=== PATIENT | female | born 2000 | race Caucasian/White ===

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

== ENCOUNTER 2018-04-25 08:40 | Emergency (ER) | payer BC ==
[2018-04-25] MEDS ORDERED: NACL 0.9% 1000 ML 1,000 ML IV ONE ×2 (11:02→12:47)
[2018-04-25] MEDS ORDERED: ZOFRAN IV ONE (11:02)
--- NOTE | 2018-04-25 11:05 | Emergency Department Report ---
Blank Doc - Documentation Documentation: 17-year-old female presents to the hospital complaining of bloody diarrhea for greater than 20 days. Patient was seen by a clinic 15 days ago put on meds including Flagyl without improvement. She was seen by another clinic on the and started on Flagyl again, Lomtil, and omeprazole. Patient developed nausea and vomiting after starting this medication. Patient was also provided containers so that she may provide a stool sample but she has artemio placed a sample and the containers. She denies recent travel, sick contacts, or fever. She presents with a heart rate of 121. Labs ordered CT abdomen and pelvis IV contrast ordered Medications ordered Patient to be transferred to the main side for evaluation
[2018-04-25 11:55] LABS: Alanine Aminotransferase 18 units/L (7-56); Albumin 3.3 g/dL (3.9-5); BUN/Creatinine Ratio 13; Blood Urea Nitrogen 8 mg/dL (7-17); Calcium 8.1 mg/dL (8.4-10.2); Hemolysis Index 0; Lipase 39 units/L (13-60)
[2018-04-25 12:02] LABS: Basophils % (Auto) 0.4 % (0.0-1.8); Eosinophils % (Auto) 0.7 % (0.0-4.3); Hematocrit 27.8 % (30.3-42.9); Hemoglobin 8.6 gm/dl (10.1-14.3); Lymphocytes # (Auto) 1.4 K/mm3 (1.2-5.4); Lymphocytes % (Auto) 21.3 % (13.4-35.0); Mean Corpuscular HGB Conc 31 % (30-34); Mean Corpuscular Volume 73 fl (79-97); Monocytes # (Auto) 0.6 K/mm3 (0.0-0.8); Monocytes % (Auto) 8.7 % (0.0-7.3); Platelet Count 392 K/mm3 (140-440); Red Blood Count 3.82 M/mm3 (3.65-5.03); Red Cell Distribution Width 16.5 % (13.2-15.2)
[2018-04-25 12:18] LABS: Mean Corpuscular Hemoglobin 23 pg (28-32)
[2018-04-25] MEDS ORDERED: TORADOL IV ONE (12:47)
[2018-04-25] MEDS ORDERED: LEVAQUIN PO ONE (12:48)
[2018-04-25 13:00] LABS: Bilirubin,Urine NEG (Negative); Blood,Urine NEG (Negative); Color,Urine Amber (Yellow); Mucus,Urine 2+ /HPF
--- NOTE | 2018-04-25 15:26 | Cat Scan Report ---
FINAL REPORT EXAM: CT ABDOMEN PELVIS W CON HISTORY: bloody diarhea TECHNIQUE: CT abdomen and pelvis performed. Images extend from diaphragm to pubic symphysis. 100 cc Isovue 300 IV was administered. No oral contrast was administered. Axial images and coronal and sagittal reformatted images were obtained. PRIORS: None. FINDINGS: The visualized liver, spleen, pancreas, adrenal glands and kidneys demonstrate no significant abnormalities. There is mild wall thickening involving the sigmoid and rectosigmoid colon. There are air-fluid levels throughout the colon. Findings are worrisome for colitis. There is no evidence of intestinal obstruction. There is no abdominal aortic aneurysm. The appendix is normal. There are no abnormal fluid collections seen. There is no free intraperitoneal air. The bladder is unremarkable. IMPRESSION: Mild distal colonic wall thickening with air-fluid levels throughout the colon. Findings are worrisome for colitis.
--- NOTE | 2018-04-25 16:17 | Emergency Department Report ---
ED General Adult HPI - General Chief complaint: Nausea/Vomiting/Diarrhea Stated complaint: VOMIT, DIARRHEA, STOMACH PAIN Time Seen by Provider: 04/25/18 10:54 Source: patient Mode of arrival: Ambulatory Limitations: No Limitations - History of Present Illness Initial comments: 1 month of bloody diarrhea with 2 days of vomiting after taking lomotil. Pt has been to an urgent care twice for this issue. Given flagyl and lomotil each time. It isn't helping her symptoms. So, she came to the ER for eval. 5-10 BMs per day. No recent travel or abx. Eating causes a BM. Severity scale (0 -10): 5 - Related Data Home Medications Medication Instructions Recorded Confirmed Last Taken Diphenoxylate HCl/Atropine 1 each PO 04/25/18 Unknown [Lomotil 2.5-0.025 mg Tablet] Omeprazole 20 mg PO 04/25/18 Unknown metroNIDAZOLE [Metronidazole] 500 mg PO 04/25/18 Unknown Previous Rx's Medication Instructions Recorded Last Taken Type Ciprofloxacin HCl [Cipro] 500 mg PO BID #14 tablet 04/25/18 Unknown Rx Ondansetron [Zofran TAB] 4 mg PO Q8HR PRN #10 tablet 04/25/18 Unknown Rx Allergies Allergy/AdvReac Type Severity Reaction Status Date / Time No Known Allergies Allergy Unverified 06/24/17 08:58 ED Review of Systems ROS: Stated complaint: VOMIT, DIARRHEA, STOMACH PAIN Other details as noted in HPI Constitutional: denies: chills, fever Eyes: denies: eye pain, eye discharge, vision change ENT: denies: ear pain, throat pain Respiratory: denies: cough, shortness of breath, wheezing Cardiovascular: denies: chest pain, palpitations Endocrine: no symptoms reported Gastrointestinal: abdominal pain, nausea, vomiting, diarrhea, hematochezia Genitourinary: denies: urgency, dysuria, discharge Musculoskeletal: denies: back pain, joint swelling, arthralgia Skin: denies: rash, lesions Neurological: denies: headache, weakness, paresthesias Psychiatric: denies: anxiety, depression Hematological/Lymphatic: denies: easy bleeding, easy bruising ED Past Medical Hx - Past Medical History Previous Medical History?: No - Surgical History Additional Surgical History: back - Social History Smoking Status: Never Smoker Substance Use Type: None - Medications Home Medications: Home Medications Medication Instructions Recorded Confirmed Last Taken Type Ciprofloxacin HCl [Cipro] 500 mg PO BID #14 tablet 04/25/18 Unknown Rx Diphenoxylate HCl/Atropine 1 each PO 04/25/18 Unknown History [Lomotil 2.5-0.025 mg Tablet] Omeprazole 20 mg PO 04/25/18 Unknown History Ondansetron [Zofran TAB] 4 mg PO Q8HR PRN #10 tablet 04/25/18 Unknown Rx metroNIDAZOLE [Metronidazole] 500 mg PO 04/25/18 Unknown History ED Physical Exam - General Limitations: No Limitations General appearance: alert, in no apparent distress - Head Head exam: Present: atraumatic, normocephalic - Eye Eye exam: Present: normal appearance - ENT ENT exam: Present: mucous membranes moist - Neck Neck exam: Present: normal inspection - Respiratory Respiratory exam: Present: normal lung sounds bilaterally. Absent: respiratory distress - Cardiovascular Cardiovascular Exam: Present: regular rate, normal rhythm. Absent: systolic murmur, diastolic murmur, rubs, gallop - GI/Abdominal GI/Abdominal exam: Present: soft, tenderness (mild generalized), normal bowel sounds. Absent: guarding, rebound - Extremities Exam Extremities exam: Present: normal inspection - Back Exam Back exam: Present: normal inspection - Neurological Exam Neurological exam: Present: alert, oriented X3 - Psychiatric Psychiatric exam: Present: normal affect, normal mood - Skin Skin exam: Present: warm, dry, intact, normal color. Absent: rash ED Course Vital Signs 04/25/18 04/25/18 04/25/18 08:53 13:07 16:56 Temperature 98.9 F Pulse Rate 121 H 98 H Respiratory 18 18 Rate Blood Pressure 108/65 Blood Pressure 110/72 [Right] O2 Sat by Pulse 100 Oximetry 04/25/18 18:24 Temperature Pulse Rate Respiratory 18 Rate Blood Pressure Blood Pressure [Right] O2 Sat by Pulse 100 Oximetry ED Medical Decision Making - Lab Data Result diagrams: 04/25/18 11:28 04/25/18 11:28 - Medical Decision Making 17 yo female with no sig pmx that p/w bloody diarrhea x1 month. Vitals significant for HR 120. This improved with IVF. Lab work shows hgb 8.7 with MCV in the 70s. Likely it is due to iron def anemia. Pt denies h/o heavy menstrual periods or anemia. No prior hgb for comparison. Minimal hematochezia on exam. CRp 2.6 with an esr in the 30s. No fam hx of IBD. Spoke with GI (Dr. Salmeron), who agreed with empiric abx, repeat hgb in 2-3 days, and a possible colonoscopy in the future to rule out IBD. Pt doesn't have a PCP and is well appearing. Will start her on cipro/flagyl. Given zofran to go home with. She will return in 3 days for repeat cbc and to find out the results of her stools studies. The patient and her parents are comfortable with this plan. I spoke with them using the cashier clerk. Pt has been provided reading handouts in japanese on anemia, infectious colitis, and taking a daily probiotic. - Differential Diagnosis infectious vs inflammatory colitis, c.diff, ischemic colitis, malignancy, Critical care attestation.: If time is entered above; I have spent that time in minutes in the direct care of this critically ill patient, excluding procedure time. ED Disposition Clinical Impression: Infectious colitis, Anemia Disposition: - TO HOME OR SELFCARE Is pt being admited?: No Does the pt Need Aspirin: No Condition: Stable Instructions: Anemia (ED), Infectious Colitis (ED) Additional Instructions: Your hemoglobin today is 8.7. Please return on 04/28/18, , to get your blood level rechecked and to get the results of your stool studies. Make sure that you drink plenty of gatorade, powerade, and/or water that has electrolytes in it in the meantime. Only eat soups, broths, jello, saltine crackers in the meantime. Continue taking the flagyl with the new medication. Try taking over- the-counter imodium instead of the lomotil to better control your diarrhea. Prescriptions: Ciprofloxacin HCl [Cipro] 500 mg PO BID #14 tablet Ondansetron [Zofran TAB] 4 mg PO Q8HR PRN #10 tablet PRN Reason: Nausea Referrals: PRIMARY CARE,MD [Primary Care Provider] - 3-5 Days
[2018-04-25 20:30] VITALS: BP 100/56
== END 2018-04-25 20:30 | disposition home or self-care (01) ==
LOC: ED 08:40
DX: A09 Infectious gastroenteritis and colitis, unspecified (principal); D64.9 Anemia, unspecified
CPT/HCPCS: 36415; 74177; 80053; 81001; 82270; 83690; 84703; 85007; 85025; 85652; 86140; 87045; 87086; 87324; J1885; J2405; J7030; Q9967; 96361; 96374; 96375

== ENCOUNTER 2018-04-28 16:27 | Emergency (ER) | payer BC ==
[2018-04-28 16:55] LABS: Basophils % (Auto) 0.3 % (0.0-1.8); Eosinophils # (Auto) 0.3 K/mm3 (0.0-0.4); Eosinophils % (Auto) 4.3 % (0.0-4.3); Hematocrit 30.1 % (30.3-42.9); Hemoglobin 9.2 gm/dl (10.1-14.3); Lymphocytes # (Auto) 1.8 K/mm3 (1.2-5.4); Lymphocytes % (Auto) 25.1 % (13.4-35.0); Mean Corpuscular HGB Conc 31 % (30-34); Mean Corpuscular Volume 72 fl (79-97); Monocytes # (Auto) 0.6 K/mm3 (0.0-0.8); Monocytes % (Auto) 9.1 % (0.0-7.3); Platelet Count 398 K/mm3 (140-440); Red Blood Count 4.19 M/mm3 (3.65-5.03)
[2018-04-28 16:56] LABS: Mean Corpuscular Hemoglobin 22 pg (28-32)
[2018-04-28 17:30] LABS: Alanine Aminotransferase 19 units/L (7-56); Albumin 3.5 g/dL (3.9-5); BUN/Creatinine Ratio 5; Blood Urea Nitrogen 3 mg/dL (7-17); Calcium 8.5 mg/dL (8.4-10.2); Hemolysis Index 0
[2018-04-28 18:16] LABS: Bilirubin,Urine NEG (Negative); Blood,Urine LG (Negative); Color,Urine Amber (Yellow); Mucus,Urine 2+ /HPF; RBC,Urine > 182.0 /HPF (0.0-6.0)
--- NOTE | 2018-04-28 20:50 | Emergency Department Report ---
HPI - General Chief Complaint: Abdominal Pain Time Seen by Provider: 04/28/18 20:35 - HPI HPI: Room 5 The patient is a 17-year-old female presenting with a chief complaint of diarrhea. The patient states she's had diarrhea with blood in stool for approximately one month. This is accompanied by intermittent diffuse abdominal pain. Patient has been to multiple clinics for these symptoms in the past and came to this ED 04/25/2018. Stool studies and labs performed in addition to a CT scan of the abdomen and pelvis which revealed mild distal colonic wall thickening without air-fluid levels throughout the colon. Findings were worrisome for colitis. The patient was instructed to return to the ED today for a repeat H&H check and stool study results. The patient states her abdominal pain is intermittent but is not currently present. Patient denies fever, unexplained weight loss. When asked how she is feeling the patient apply she feels "okay." The patient states she is still having diarrhea but not as frequently as before her last ED visit. The patient states before she came to the ED 04/25/2018 she was having over 5 episodes of diarrhea daily now it has decreased approximately 3 and she is noticing streaks of blood in her stool Location: Gastric intestinal system Duration: One month Quality: Cramping Severity: Currently 0/10 Modifying factors: [see above] Context: [see above] Mode of transportation: [not driving] ED Past Medical Hx - Past Medical History Previous Medical History?: No - Surgical History Past Surgical History?: Yes Additional Surgical History: back - Family History Family history: no significant - Social History Smoking Status: Never Smoker Substance Use Type: None - Medications Home Medications: Home Medications Medication Instructions Recorded Confirmed Last Taken Type Ciprofloxacin HCl [Cipro] 500 mg PO BID #14 tablet 04/25/18 Unknown Rx Diphenoxylate HCl/Atropine 1 each PO 04/25/18 Unknown History [Lomotil 2.5-0.025 mg Tablet] Omeprazole 20 mg PO 04/25/18 Unknown History Ondansetron [Zofran TAB] 4 mg PO Q8HR PRN #10 tablet 04/25/18 Unknown Rx metroNIDAZOLE [Metronidazole] 500 mg PO 04/25/18 Unknown History Dicyclomine [Bentyl] 20 mg PO QID #20 tablet 04/28/18 Unknown Rx ED Review of Systems ROS: Stated complaint: PAIN/CHECK UP/WEAK DEHYDRATED Other details as noted in HPI Constitutional: denies: fever Eyes: denies: eye pain ENT: denies: throat pain Respiratory: denies: no symptoms reported Cardiovascular: denies: chest pain Endocrine: denies: unexplained weight gain Gastrointestinal: abdominal pain, nausea, vomiting, diarrhea, hematochezia Genitourinary: denies: dysuria Musculoskeletal: denies: back pain Skin: denies: change in color Neurological: denies: headache Physical Exam - Physical Exam Vital Signs: Vital Signs 04/28/18 04/28/18 04/28/18 16:31 20:00 20:05 Temperature 98.6 F 97.8 F Pulse Rate 91 H 83 Respiratory 18 16 16 Rate Blood Pressure 98/63 Blood Pressure 110/54 [Left] O2 Sat by Pulse 100 98 Oximetry Physical Exam: GENERAL: The patient is well-developed well-nourished female lying on stretcher not appearing to be in acute distress. [] HEENT: Normocephalic. Atraumatic. Extraocular motions are intact. Patient has moist mucous membranes. NECK: Supple. Trachea midline CHEST/LUNGS: Clear to auscultation. There is no respiratory distress noted. HEART/CARDIOVASCULAR: Regular. There is no tachycardia. There is no gallop rub or murmur. ABDOMEN: Abdomen is soft, with discomfort to palpation in the left upper quadrant, left lower quadrant and midepigastric region. Patient has normal bowel sounds. There is no abdominal distention. SKIN: There is no rash. There is no edema. There is no diaphoresis. NEURO: The patient is awake, alert, and oriented. The patient is cooperative. The patient has normal speech MUSCULOSKELETAL: There is no evidence of acute injury. ED Course Vital Signs 04/28/1818 04/28/18 16:31 20:00 20:05 Temperature 98.6 F 97.8 F Pulse Rate 91 H 83 Respiratory 18 16 16 Rate Blood Pressure 98/63 Blood Pressure 110/54 [Left] O2 Sat by Pulse 100 98 Oximetry - Consultations Consultation #1: 04/28/18 20:55 GI paged 04/28/18 21:[address] Curtis. States patient should continue antibiotics and follow-up in office ED Medical Decision Making - Lab Data Result diagrams: 04/28/18 16:42 07/19/18 16:42 Laboratory Tests 04/28/18 04/28/18 04/28/18 16:42 16:42 17:57 WBC 7.1 RBC 4.19 Hgb 9.2 L Hct 30.1 L MCV 72 L MCH 22 L MCHC 31 RDW 17.0 H Plt Count 398 Lymph % (Auto) 25.1 [place] % (Auto) 9.1 H Eos % (Auto) 4.3 Baso % (Auto) 0.3 Lymph # 1.8 [place] # 0.6 Eos # 0.3 Baso # 0.0 Seg Neutrophils % 61.2 Seg Neutrophils # 4.3 Sodium 136 L Potassium 4.0 Chloride 102.4 Carbon Dioxide 25 Anion Gap 13 BUN 3 L Creatinine 0.6 L Estimated GFR > 60 BUN/Creatinine Ratio 5 Glucose 112 H Calcium 8.5 Total Bilirubin 0.20 AST 34 ALT 19 Alkaline Phosphatase 62 Total Protein 7.2 Albumin 3.5 L Albumin/Globulin Ratio 0.9 Urine Color [place] Urine Turbidity Clear Urine pH 5.0 Ur Specific [place] 1.024 Urine Protein 100 mg/dl Urine Glucose (UA) Neg Urine Ketones Tr Urine Blood Lg Urine Nitrite Neg Urine Bilirubin Neg Urine Urobilinogen 2.0 Ur Leukocyte Esterase Mod Urine WBC (Auto) 26.0 H Urine RBC (Auto) > 182.0 U Epithel Cells (Auto) 3.0 Urine Mucus 2+ - Differential Diagnosis Crohn's disease, ulcerative colitis, irritable bowel syndrome Critical care attestation.: If time is entered above; I have spent that time in minutes in the direct care of this critically ill patient, excluding procedure time. ED Disposition Clinical Impression: Infectious colitis, Hematochezia Disposition: TO HOME OR SELFCARE Is pt being admited?: No Does the pt Need Aspirin: No Condition: Stable Instructions: Abdominal Pain (ED) Additional Instructions: Return to the emergency department immediately should you develop worsening symptoms, fever, inability to tolerate food or liquid or any other concerns. 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 Please follow up with him for further evaluation) Time of Disposition: 21:42
[2018-04-28 22:14] VITALS: BP 102/52
== END 2018-04-28 22:14 | disposition home or self-care (01) ==
LOC: ED 16:27
DX: A09 Infectious gastroenteritis and colitis, unspecified (principal); K92.1 Melena
CPT/HCPCS: 36415; 80053; 81001; 85025; 99283

== ENCOUNTER 2022-01-23 08:19 | Day surgery (SDC) | payer BC ==
[~2022-01-23 08:19] MED LIST: SODIUM CHLORIDE 0.9% 1000 ML 1,000 ML IV SCH
--- NOTE | 2022-01-23 09:19 | Anesthesia Consultation ---
Anesthesia Consult and Med Hx Date of service: 01/23/22 - Airway Anesthetic Teeth Evaluation: Good ROM Head & Neck: Adequate Mental/Hyoid Distance: Adequate Mallampati Class: Class II Intubation Access Assessment: Good - Pre-Operative Health Status ASA Pre-Surgery Classification: ASA1 Proposed Anesthetic Plan: MAC - Pulmonary Hx Smoking: No Hx Sleep Apnea: No - Gastrointestinal Hx Gastroesophageal Reflux Disease: No (UC) - Other Systems Hx Obesity: No
--- NOTE | 2022-01-23 09:19 | Anesthesia Day of Surgery ---
Anesthesia Day of Surgery - Day of Surgery Patient Examined: Yes Patient H&P Reviewed: Yes Patient is NPO: Yes
[2022-01-23] MEDS ORDERED: propofoL 200 MG/20 ML VIAL IV ONE ×2 (10:13→10:29)
--- NOTE | 2022-01-23 10:47 | Procedure Note ---
Date of procedure: 01/23/22 Pre-op diagnosis: Exacerbation of Ulcerative Colitis Post-op diagnosis: other (Exacerbation of Ulcerative Colitis (most pronounced in the Distal Colon)/R/O Ileitis/ Mild to Moderate Internal Hemorrhoids) Procedure: Colonoscopy with Cold Biopsy Anesthesia: MAC Surgeon: KATHLEEN LOPEZ Estimated blood loss: minimal Pathology: list Specimen disposition: to lab Condition: stable Disposition: same day (Avoid aspirin and NSAId for 4 days; treat with Rowasa aEnema and tapering dose of Steroids. F/U in 1to 2 weeks and may consider placing the patient onRemicaide infusion.)
--- NOTE | 2022-01-23 10:49 | Post Anesthesia Evaluation ---
- Post Anesthesia Evaluation Patient Participated: Yes Airway Patent: Yes Stable Respiratory Function: Yes Nausea/Vomiting: No Temp > 96.8F: Yes Pain Manageable: Yes Adequeate Hydration: Yes Anesthesia Complications: No Block Receding Appropriately: Not Applicable Patient on Ventilator: No
--- NOTE | 2022-01-23 12:58 | Operative Report ---
DATE OF SURGERY: 01/23/2022 PROCEDURE PERFORMED: Colonoscopy with biopsy. INDICATIONS: This is a 21-year-old female who has had history of ulcerative colitis that was diagnosed in 2018. She had a significant drop in her hemoglobin. She has gained a large part of her weight back, but she still not back to her normal weight of about 134 pounds. She weighs about 128 pounds at present. She is on Imuran and mesalamine, but in spite of that has had exacerbation with bleeding and diarrhea. A colonoscopy was done to assess for the severity of the colitis. DESCRIPTION OF PROCEDURE: Procedure was done after getting informed consent with MAC anesthesia. Initial rectal examination was unremarkable. The instrument was passed through the rectum onto the cecum, which was identified with ileocecal valve and appendiceal orifice. Visualization was fair to good. The terminal ileum was intubated and showed normal mucosa. Biopsy was done to rule out for possible ileitis. Cecum, ascending colon as well as the transverse colon showed some degree of colitis, which was most pronounced in the more distal part of the colon. Random biopsies were done from the right colon as well as from the transverse and the left colon to assess for the severity of the colitis. There were some ulcerations noted in the rectum, which was also biopsied and photodocumentation was done, with minimal bleeding. There was some [id number] internal hemorrhoid noted on the retroverted view. ASSESSMENT: Exacerbation of ulcerative colitis, most pronounced in the distal colon, rule out ileitis and [id number] internal hemorrhoid. PLAN: To place the patient on Rowasa enema. If the patient continues to have exacerbation of symptoms, we will place the patient on a tapering dose of steroids, have the patient avoid aspirin and aspirin-related products for the next few days. Follow up in the office in 1-2 weeks' time. Based on the biopsy results, the patient may be placed on biologics like Remicade infusion. We will check the patient's HBsAg or hepatitis B status as well as TB status prior to placing the patient on Remicade infusion. Procedure was done in the GI lab with assistance of the GI lab team, which included the GI nurse, the technology infusion specialist and with assistance of anesthesia. TID: [id number] RECEIPT: [id number] ESTEPHANIA/MARILYN
[2022-01-23 19:48] VITALS: BP 103/66
== END 2022-01-23 11:30 | disposition home or self-care (01) ==
LOC: GIO 08:19
DX: R19.7 Diarrhea, unspecified (principal); R63.4 Abnormal weight loss; R10.9 Unspecified abdominal pain; K92.1 Melena; K51.80 Other ulcerative colitis without complications; K64.8 Other hemorrhoids; K63.89 Other specified diseases of intestine; K62.89 Other specified diseases of anus and rectum; Z79.899 Other long term (current) drug therapy
CPT/HCPCS: 45380; 81025; 88305; J2704; J7030; J7120; Q0162